=== PATIENT | male | born 1955 | race Caucasian/White ===

== ENCOUNTER 2017-04-26 21:10 | Emergency (ER) | payer MEDICAID ==
[~2017-04-26] VITALS: Ht 175.3 cm; Wt 79.4 kg
[~2017-04-26 21:10] MED LIST: CARI-316 PO; LORA-622 PO; LOVA10TA54 PO; PSEU12TA PO; RANI150C11 PO
[2017-04-26 21:28] VITALS: BP 136/85
[2017-04-26] MEDS ORDERED: KETOROLAC TROMETH 60MG/2ML VIAL IM ONE (22:45)
== END 2017-04-26 23:27 | disposition home or self-care (01) ==
LOC: ER 21:10
DX: S13.4XXA Sprain of ligaments of cervical spine, initial encounter (principal); Z79.899 Other long term (current) drug therapy; R51 Headache; M25.512 Pain in left shoulder; V43.52XA Car driver injured in collision with other type car in traffic accident, initial encounter; Y93.89 Activity, other specified; Y99.8 Other external cause status; Y92.89 Other specified places as the place of occurrence of the external cause
CPT/HCPCS: 70450; 72125; 73030; 96372; 99284; J1885

== ENCOUNTER 2017-05-08 17:37 | Emergency (ER) | payer MEDICAID ==
[~2017-05-08] VITALS: Ht 175.3 cm; Wt 77.1 kg
[2017-05-08 20:51] VITALS: BP 140/82
[2017-05-08] MEDS ORDERED: NEOMYCIN-BACITRACIN-POLYM UNITDOSE PKG TOP OINT TOP ONE (21:15)
[2017-05-08] MEDS ORDERED: TETANUS-DIPTH-ACEL PERTUSSIS 0.5ML SYRG IM ONE (21:15)
== END 2017-05-08 22:00 | disposition home or self-care (01) ==
LOC: ER 17:48
DX: S61.216A Laceration without foreign body of right little finger without damage to nail, initial encounter (principal); Z23 Encounter for immunization; W45.8XXA Other foreign body or object entering through skin, initial encounter; Y93.89 Activity, other specified; Y99.8 Other external cause status; Y92.89 Other specified places as the place of occurrence of the external cause
CPT/HCPCS: 12002; 90471; 90715

== ENCOUNTER 2021-04-28 10:19 | Emergency (ER) | payer MEDICARE, MEDICAID ==
[~2021-04-28] VITALS: Ht 175.3 cm; Wt 90.7 kg
[~2021-04-28 10:19] MED LIST changes: -CARI-316 PO; +CARI350T22 PO
[2021-04-28 11:07] LABS: Basophils # (auto) 0.1 10 ^3/uL (0-0.2); Basophils % (auto) 0.8 % (0.0-2.0); Eosinophils # (auto) 0.1 10 ^3/uL (0-0.8); Eosinophils % (auto) 1.4 % (0.0-7.0); Hematocrit 44.1 % (41.0-53.0); Hemoglobin 15.1 g/dL (13.5-17.5); Lymphocytes # (auto) 2.6 10 ^3/uL (0.4-5.4); Lymphocytes % (auto) 37.7 % (10.0-50.0); Mean Corpuscular Hemoglobin 29.1 pg (28.0-32.0); Mean Corpuscular Hgb Conc. 34.3 g/dL (32.0-36.0); Mean Corpuscular Volume 84.7 fL (80.0-100.0); Monocytes # (auto) 0.5 10 ^3/uL (0-1.3); Monocytes % (auto) 6.8 % (0.0-12.0); Neutrophils # (auto) 3.7 10 ^3/uL (1.6-8.6); Neutrophils % (auto) 53.3 % (37.0-80.0); Nucleated Red Blood Cells % 0.1 %; Red Cell Distribution Width 13.9 % (11.8-14.3); White Blood Cell 6.9 10^3/uL (4.4-10.8)
[2021-04-28 11:25] LABS: Albumin 3.4 g/dL (3.4-5.0); Anion Gap 6 (5-15); Blood Urea Nitrogen 15 mg/dL (7-18); Calcium 8.5 mg/dL (8.5-10.1); Carbon Dioxide 25 mmol/L (21-32); Chloride 106 mmol/L (98-107); Glucose 202 mg/dL (74-106); Potassium 3.9 mmol/L (3.5-5.1); Sodium 137 mmol/L (136-145)
[2021-04-28 11:37] LABS: Alanine Aminotransferase 42 U/L (16-61); Alkaline Phosphatase 150 U/L (45-117); Aspartate Aminotransferase 17 U/L (15-37); BUN/Creatinine Ratio 16.5; Bilirubin, Total 0.4 mg/dL (0.2-1.0); GFR African American 107 mL/min; GFR Non-African American 88 mL/min; Total Protein 7.2 g/dL (6.4-8.2)
[2021-04-28 16:14] VITALS: BP 149/71
[2021-04-28 16:36] LABS: Urine Bacteria NONE SEEN /hpf (None Seen); Urine Blood Negative /uL (Negative); Urine Mucus FEW (None Seen); Urine Specific Gravity 1.027 (1.001-1.035); Urine WBC 6 /hpf (0 - 3)
== END 2021-04-28 16:45 | disposition home or self-care (01) ==
LOC: ER 10:19
DX: L40.9 Psoriasis, unspecified (principal); I73.9 Peripheral vascular disease, unspecified; R73.9 Hyperglycemia, unspecified; I10 Essential (primary) hypertension; E78.5 Hyperlipidemia, unspecified; Z87.891 Personal history of nicotine dependence; Z79.899 Other long term (current) drug therapy
CPT/HCPCS: 36415; 71045; 80053; 81001; 84484; 85025; 93971

== ENCOUNTER 2025-07-09 17:19 | Inpatient (IN) | payer MEDICARE, MEDICAID ==
[~2025-07-09] VITALS: Ht 175.3 cm; Wt 84.8 kg
[~2025-07-09 17:19] MED LIST changes: +CARI-578 PO; -CARI350T22 PO
[2025-07-09 18:15] VITALS: PULSE 109; RESP 18; O2SAT 92
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
[2025-07-09 18:22] LABS: Hematocrit 47.1 % (41.0-53.0); Hemoglobin 16.2 g/dL (13.5-17.5); Mean Corpuscular Hemoglobin 29.5 pg (28.0-32.0); Mean Corpuscular Volume 85.8 fL (80.0-100.0); Nucleated Red Blood Cells % 0.1 %
[2025-07-09 18:30] LABS: Chloride 101 mmol/L (98-107); Potassium 4.0 mmol/L (3.5-5.1); Sodium 140 mmol/L (136-145)
[2025-07-09 18:31] LABS: Anion Gap 14 (5-15); Carbon Dioxide 25 mmol/L (20-31)
[2025-07-09 18:32] LABS: Calcium 9.8 mg/dL (8.7-10.4)
[2025-07-09 18:36] LABS: BUN/Creatinine Ratio 11.2 (10.0-20.0); Blood Urea Nitrogen 10 mg/dL (9-23)
[2025-07-09 18:38] LABS: Glucose 178 mg/dL (74-106)
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
[2025-07-09] MEDS ORDERED: ACETAMINOPHEN 325 MG TAB PO PRN (19:30)
[2025-07-09] MEDS ORDERED: DOCUSATE SOD 100 MG CAP PO PRN (19:30)
[2025-07-09] MEDS ORDERED: ONDANSETRON HCL 4 MG/2 ML VIAL IV PRN (19:30)
[2025-07-09] MEDS ORDERED: LORazepam 2MG/ML-1ML VIAL IV PRN (19:30)
[2025-07-09 19:31] LABS: Urine Protein, UAD TRACE (Negative)
[2025-07-09 19:33] LABS: Amphetamine Screen, Urine Neg (NEGATIVE); Barbiturate Scree,Urine Neg (NEGATIVE); Benzodiazephine Screen, Urine Neg (NEGATIVE); Cannabinoid Screen, Urine Neg (NEGATIVE); Cocaine Screen, Urine Neg (NEGATIVE); Opiate Scree,Urine Pos (NEGATIVE); Phencyclidine Screen, Urine Neg (NEGATIVE)
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
[2025-07-09] MEDS ORDERED: NITROGLYCERIN 0.4 MG SL TAB SL PRN (20:45)
[2025-07-09] MEDS ORDERED: MORPHINE SULFATE INJ 2 MG/ml SYRG IV PRN (20:45)
[2025-07-09] MEDS ORDERED: DEXTROSE (50%) 50ML SYRG IV PRN (22:30)
[2025-07-10] VITALS (8 sets, daily range): BP systolic 114–155; BP diastolic 70–95; PULSE 83–103; RESP 16–20; TEMP 97.8–98.6; O2SAT 94–99
[2025-07-10] MEDS: ATORVASTATIN 20 MG TAB ONE (00:15)
[2025-07-10] MEDS: ATORVASTATIN 20 MG TAB PO SCH (00:23)
[2025-07-10] MEDS: SODIUM CHLOR 0.9% PF (SALINE LOCK) 10ML VIAL/SYR IV SCH (00:31)
[2025-07-10] MEDS ORDERED: CYCL-611 PO (00:33)
[2025-07-10] MEDS ORDERED: HYDR-4072 PO (00:33)
[2025-07-10 06:01] LABS: Hematocrit 41.6 % (41.0-53.0); Hemoglobin 14.5 g/dL (13.5-17.5); Mean Corpuscular Hemoglobin 29.6 pg (28.0-32.0); Mean Corpuscular Volume 85.0 fL (80.0-100.0); Nucleated Red Blood Cells % 0.1 %
[2025-07-10] MEDS: InsuLIN REG 1unit/0.01ml Soln (100units/ml) SC SCH (06:04)
[2025-07-10] MEDS: ACCU-CHEK COMFORT CURVE STRIP VI SCH (06:04)
[2025-07-10] MEDS: InsuLIN REG 1unit/0.01ml Soln (100units/ml) ONE (06:09)
[2025-07-10 06:23] LABS: Anion Gap 8 (5-15); BUN/Creatinine Ratio 8.3 (10.0-20.0); Calcium 9.0 mg/dL (8.7-10.4); Carbon Dioxide 28 mmol/L (20-31); Chloride 102 mmol/L (98-107); Potassium 4.1 mmol/L (3.5-5.1); Sodium 138 mmol/L (136-145); Total Protein 6.7 g/dL (5.7-8.2)
[2025-07-10 06:24] LABS: Alanine Aminotransferase 59 U/L (7-40); Albumin 3.9 g/dL (3.2-4.8); Alkaline Phosphatase 146 U/L (46-116); Bilirubin, Total 0.6 mg/dL (0.2-1.0); Blood Urea Nitrogen 7 mg/dL (9-23); Glucose 162 mg/dL (74-106)
[2025-07-10] MEDS: FAMOTIDINE (10MG/ML) 2ML VL IV SCH (12:24)
[2025-07-10] MEDS: HYDROcodone-ACET 5/325MG TAB PO PRN (12:24)
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
[2025-07-10] MEDS ORDERED: levETIRAcetam 500 MG TAB PO ONE (21:00)
[2025-07-10] MEDS ORDERED: LORazepam 2MG/ML-1ML VIAL IV PRN ×2 (21:00)
[2025-07-10] MEDS: levETIRAcetam 500 MG TAB PO SCH (22:00)
[2025-07-10] MEDS: levETIRAcetam 500 MG TAB ONE (22:44)
[2025-07-11] VITALS (8 sets, daily range): BP systolic 122–146; BP diastolic 73–89; PULSE 84–100; RESP 17–18; TEMP 97.6–97.8; O2SAT 93–98
[2025-07-11] MEDS: levETIRAcetam 500 MG TAB ONE (09:24)
--- NOTE | 2025-07-11 10:35 | DVH ---
MRI BRAIN HEAD WO CONTRAST INDICATION: aloc EXAM DATE: 07/11/2025 09:45 AM COMPARISON: CT HEAD WITHOUT CONTRAST on DOS: 07/09/25 PROCEDURE: Using a 1.5 Ashely scanner, multisequence multiplanar imaging of the brain was obtained. FINDINGS: The brainshows normal morphology and signal characteristics. No abnormal T2 hyperintensity, diffusion restriction, or susceptibility hypointensity is present. The ventricles are normal in size. The midline structures are intact. The major intracranial flow voids are present. The aerated spaces are normal. The orbital contents and extracranial soft tissues appear normal. IMPRESSION: No acute abnormal MRI findings of the brain.
--- NOTE | 2025-07-11 17:46 | DVHPN2 ---
Subjective Patient remained stable without any seizures overnight. Evaluated by neurologist and recommending trial of oral antiseizure medications started on Keppra. MRI of the brain no acute pathology. EEG is pending. Changes from previous H/P or p: No Changes Eyes: No Pain, No Vision change, No Conjunctivae inflammation, No Eyelid inflammation, No Other, No Redness ENT: No Ear pain, No Ear discharge, No Nose pain, No Nose discharge, No Nose congestion, No Mouth pain, No Mouth swelling, No Throat pain, No Throat swelling, No Other Cardiovascular: No Chest Pain, No Palpitations, No Orthopnea, No Paroxysmal Noc. Dyspnea, No Edema, No Lt Headedness, No Other Respiratory: No Cough, No Dry, No Shortness of breath, No SOB with excertion, No Wheezing, No Hemoptysis, No Pleuritic Pain, No Sputum, No Other Gastrointestinal: No Nausea, No Vomiting, No Abdominal Pain, No Diarrhea, No Constipation, No Melena, No Hematochezia, No Other Genitourinary: No Dysuria, No Frequency, No Incontinence, No Hematuria, No Retention, No Other Musculoskeletal: No other; neck pain; No shoulder pain, No arm pain, No back pain, No hand pain, No leg pain, No foot pain Skin: No Rash, No Lesions, No Jaundice, No Bruising, No Other Objective Vitals Vital Signs Date Time Temp Pulse Resp B/P (MAP) Pulse Ox O2 Delivery O2 Flow Rate FiO2 07/11/25 16:10 97.8 93 18 130/79 (96) 93 97.8 07/10/25 20:00 Nasal Cannula* 2 28 Intake/Output Intake and Output 07/11/25 07:00 Intake Total 1086 ml Output Total 600 ml Balance 486 ml Intake Oral 1086 ml Output Urine Total 600 ml # Bowel Movements 2 Exam Alert awake oriented to place and person. HEENT neck supple no JVD pupils equal round react to light. Heart regular rate and rhythm S1 plus S2. Lungs fair air movement without any rales or wheezes. Chest equal to expansion. Abdomen is soft nontender nondistended positive bowel sounds. Extremities no edema positive pulses. Neurologically no focal deficits. Able to follow commands. Medications Current Medications Medications Dose Ordered Sig/Mukesh Route Start Time Stop Time Status Last Admin Dose Admin Lorazepam 1 mg Q2HP PRN IV 07/09/25 19:30 Atorvastatin Calcium 10 mg HS PO 07/09/25 22:00 07/10/25 21:40 10 MG Sodium Chloride 10 ml Q8HR IV 07/09/25 22:00 07/11/25 05:53 10 ML Acetaminophen/ Hydrocodone Bitart 1 tab Q4HP PRN PO 07/09/25 19:30 07/11/25 13:12 1 TAB Ondansetron HCl 4 mg Q4HP PRN IV 07/09/25 19:30 Docusate Sodium 100 mg BIDPRN PRN PO 07/09/25 19:30 Acetaminophen 650 mg Q6HP PRN PO 07/09/25 19:30 Nitroglycerin 0.4 mg Q5MINP PRN SL 07/09/25 20:45 Morphine Sulfate 2 mg Q30M PRN IV 07/09/25 20:45 Clonidine HCl 0.1 mg Q4HP PRN PO 07/09/25 22:30 07/10/25 00:30 0.1 MG Diagnostic Test (Pha) 1 strip ACHS 07/10/25 07:00 07/11/25 06:25 1 STRIP Insulin Human Regular ACHS SC 07/10/25 07:00 07/11/25 13:12 2 UNITS Dextrose 50 ml UD PRN IV 07/09/25 22:30 Lorazepam 1 mg ONCE PRN IV 07/10/25 21:00 Levetiracetam 500 mg BID PO 07/10/25 22:00 07/11/25 09:24 500 MG Lorazepam 1 mg Q5MINP PRN IV 07/10/25 21:00 Laboratory Results Laboratory Tests 07/10/25 05:44 Urinalysis Test 07/09/25 18:44 Urine Color Yellow (Yellow) Urine Clarity Clear (Clear) Urine pH 5.5 (5.0-9.0) Urine Specific [place] 1.021 (1.001-1.035) Urine Protein Trace (Negative) H Urine Ketones Trace (Negative) Urine Blood Negative /uL (Negative) Urine Nitrite Negative (Negative) Urine Bilirubin Negative (Negative) Urine Urobilinogen Normal mg/dL (Negative) Urine Leukocyte Esterase Negative /uL (Negative) Urine RBC <1 /hpf (0 - 3) Urine Microscopic WBC 1 /HPF (0-3) Urine Squamous Epithelial Cells None seen /hpf (<5) Urine Bacteria None seen /hpf (None Seen) Urine Mucus Few (None Seen) Urine Glucose Normal mg/dL (Normal) Labs and/or images reviewed: Labs reviewed by me Assessment/Plan Assessment/Plan questionable seizure. No seizures since admission. Evaluated by Neurology and follow his recommendations were trial of Keppra orally and no driving for 90 days. Monitor him overnight and if he remains seizure-free consider discharge home tomorrow. Discussed with the patient as well as the nurse regarding care plan at bedside. Plan discussed with: Patient, Other Problem List: (1) Autonomic dysfunction (2) Type 2 diabetes mellitus with hyperglycemia (3) Seizure (4) Musculoskeletal pain Date of Service: Jul 11, 2025 Billing Provider: SANDRA HERNANDEZ MD Common Visit Codes: [id number] INP/OBS CARE(MOD) SANDRA HERNANDEZ MD Jul 11, 2025 17:46
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
[2025-07-12 01:00] VITALS: BP 127/78; PULSE 85; RESP 17; TEMP 98.5; O2SAT 91
[2025-07-12 05:00] VITALS: BP 145/79; PULSE 94; RESP 17; TEMP 98.4; O2SAT 91
[2025-07-12 09:00] VITALS: BP 150/92; PULSE 83; RESP 18; TEMP 97.7; O2SAT 94
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
--- NOTE | 2025-07-12 12:33 | DVHDS2 ---
Discharge Summary Date of Admission Jul 09, 2025 at 20:40 Date of Discharge: Jul 12, 2025 Labs/Diagnostic Data: Laboratory Results Test 07/12/25 11:27 07/10/25 05:44 07/09/25 18:44 07/09/25 18:00 POC Glucose 189 mg/dl (70-106) White Blood Count 10.1 10^3/uL (4.4-10.8) Red Blood Count 4.90 10^6/uL (4.5-5.90) Hemoglobin 14.5 g/dL (13.5-17.5) Hematocrit 41.6 % (41.0-53.0) Mean Corpuscular Volume 85.0 fL (80.0-100.0) Mean Corpuscular Hemoglobin 29.6 pg (28.0-32.0) Mean Corpuscular Hemoglobin Concent 34.9 g/dL (32.0-36.0) Red Cell Distribution Width 13.8 % (11.8-14.3) Platelet Count 195 10^3/uL (140-450) Mean Platelet Volume 8.8 fL (6.9-10.8) Neutrophils (%) (Auto) 76.0 % (37.0-80.0) Lymphocytes (%) (Auto) 16.5 % (10.0-50.0) Monocytes (%) (Auto) 6.8 % (0.0-12.0) Eosinophils (%) (Auto) 0.4 % (0.0-7.0) Basophils (%) (Auto) 0.3 % (0.0-2.0) Neutrophils # (Auto) 7.6 10 ^3/uL (1.6-8.6) Lymphocytes # (Auto) 1.7 10 ^3/uL (0.4-5.4) Monocytes # (Auto) 0.7 10 ^3/uL (0-1.3) Eosinophils # (Auto) 0 10 ^3/uL (0-0.8) Basophils # (Auto) 0 10 ^3/uL (0-0.2) Nucleated Red Blood Cells 0.1 % Sodium Level 138 mmol/L (136-145) Potassium Level 4.1 mmol/L (3.5-5.1) Chloride Level 102 mmol/L (98-107) Carbon Dioxide Level 28 mmol/L (20-31) Anion Gap 8 (5-15) Blood Urea Nitrogen 7 mg/dL (9-23) Creatinine 0.84 mg/dL (0.700-1.30) Glomerular Filtration Rate Calc 93 mL/min (>90) BUN/Creatinine Ratio 8.3 (10.0-20.0) Serum Glucose 162 mg/dL (74-106) Calcium Level 9.0 mg/dL (8.7-10.4) Total Bilirubin 0.6 mg/dL (0.2-1.0) Aspartate Amino Transferase (AST) 26 U/L (13-40) Alanine Aminotransferase (ALT) 59 U/L (7-40) Alkaline Phosphatase 146 U/L (46-116) Total Protein 6.7 g/dL (5.7-8.2) Albumin 3.9 g/dL (3.2-4.8) Plasma/Serum Blood Alcohol < 3.0 mg/dL (<10) Urine Color Yellow (Yellow) Urine Clarity Clear (Clear) Urine pH 5.5 (5.0-9.0) Urine Specific [place] 1.021 (1.001-1.035) Urine Protein Trace (Negative) Urine Ketones Trace (Negative) Urine Blood Negative /uL (Negative) Urine Nitrite Negative (Negative) Urine Bilirubin Negative (Negative) Urine Urobilinogen Normal mg/dL (Negative) Urine Leukocyte Esterase Negative /uL (Negative) Urine RBC <1 /hpf (0 - 3) Urine Microscopic WBC 1 /HPF (0-3) Urine Squamous Epithelial Cells None seen /hpf (<5) Urine Bacteria None seen /hpf (None Seen) Urine Mucus Few (None Seen) Urine Glucose Normal mg/dL (Normal) Urine Opiates Screen Pos (NEGATIVE) Urine Fentanyl Screen Neg (NEGATIVE) Urine Barbiturates Screen Neg (NEGATIVE) Urine Phencyclidine Screen Neg (NEGATIVE) Urine Amphetamines Screen Neg (NEGATIVE) Urine Benzodiazepines Screen Neg (NEGATIVE) Urine Cocaine Screen Neg (NEGATIVE) Urine Cannabinoids Screen Neg (NEGATIVE) Hemoglobin A1c 6.8 % A1C (<5.7) Other Laboratory Tests 07/10/25 05:44 Brief Hx & Hospital Course: see dictated note Condition at Discharge: Fair Final Diagnosis/Problems List seizure Discharge Disposition: Home Discharge Instruct/Medications Diet: Cardiac 2g Na,low cholest Activity: No Restrictions, As Tolerated Follow Up/Referral: schedule appt with dr Parr in 2 wks Medications: script to pharmacy Scheduled Carisoprodol (Carisoprodol), 350 TAB PO BID, (Reported) Cyclobenzaprine HCl (Cyclobenzaprine Hydrochlo), 1 TAB PO TID, (Reported) Hydrocodone-Acetaminophen (Hydrocodone/Acetaminophen 10-325 mg), 1 TAB PO TID, (Reported) Loratadine (Claritin), 1 TAB PO DAILY, (Reported) Ranitidine Hcl (Ranitidine Hcl), 1 CAP PO BID, (Reported) Miscellaneous Medications Lovastatin (Lovastatin), 10 MG PO, (Reported) Pseudoephedrine (Sudogest 12 Hour), 12 HOUR PO, (Reported) Discharge Statement: "Patient was advised to return to the ER or call 911 if any headaches, dizziness, shortness of breath, chest pain, abdominal pain, bleeding, fevers, or worsening of medical condition. Patient was counseled about treatment plan, medications, possible side effects, patientverbalized understanding. All questions were answered to the best of my ability. This discharge took greater then 30 minutes in planning, reviewing documentation, counseling the patient, and discussing with other team members." ASSESSMENT ASSESSMENT Assessment seizure Date of Service: Jul 12, 2025 Billing Provider: ELIOT RENO MD Common Visit Codes: 16969-LGG/OBS DISCH DAY >30min ELIOT RENO MD Jul 12, 2025 12:33
[2025-07-12] MEDS ORDERED: KEP500T PO (12:34)
--- NOTE | 2025-07-12 12:38 | DVHPN2 ---
Date of Service: Jul 12, 2025 Billing Provider: ELIOT RENO MD Common Visit Codes: 60708-SGW/OBS DISCH DAY >30min Secondary Visit Codes: 89267-OUQYOGRH CARE PLAN 30 MINUTES ELIOT RENO MD Jul 12, 2025 12:38
[2025-07-12] MEDS ORDERED: METF-370 PO (12:39)
[2025-07-12 12:46] VITALS: BP 135/89; PULSE 79; RESP 17; TEMP 98.3; O2SAT 94
--- NOTE | 2025-07-12 12:46 | DVHDS ---
DATE OF DISCHARGE: 07/12/2025 HISTORY OF PRESENT ILLNESS: The patient is a 70-year-old gentleman, who was admitted after he was noted to have seizure activity and has a history of hyperlipidemia and questionable seizure disorder in the past. HOSPITAL COURSE: The patient had an MRI of the brain that showed no acute abnormality. The patient was seen in neurology consult by Dr. Parr. Cervical spine CT was also negative. The patient's tox screen was negative except for opiates. The patient has since had no further seizure activity and has been cleared for discharge by Dr. Parr. He will be discharged home to be on Keppra 500 mg b.i.d. He will followup with him in the next two weeks. FINAL DIAGNOSES: Therefore; * Seizure activity. * Hyperlipidemia. * Questionable diabetes mellitus. ADVANCED CARE PLANNING: The patient is a full code. Time spent was 17 minutes. Time spent in discharge planning and review of plan with the patient and nursing was 38 minutes. MD JUHI Hylton/MANOHAR TID: [id number] RECEIPT: [id number]
[2025-07-12 13:03] VITALS: BP 135/89; PULSE 79; RESP 17; TEMP 98.3; O2SAT 94
--- NOTE | 2025-07-13 23:17 | DVHEEG2 ---
Neurology EEG Procedural Note Procedural Note EXAM DATE: 07/11/2025 REFERRING DOCTOR: Dr. Schwab TECHNIQUE: Eighteen channels of EEG, 2 channels of EOG, and 1 channel of EKG were recorded using the [employer] 10/20 system. CLINICAL DATA: The patient was referred for an EEG evaluation for the evidence of seizure disorder. MEDICATIONS: See the chart BACKGROUND ACTIVITY: While the patient was awake, the background activity consisted of well regulated 10 Hz rhythmic waveforms, symmetrically distributed over both posterior quadrants and was reactive to eye opening. ACTIVATION: Hyperventilation: Not done Photic Stimulation: No photic convulsive response Sleep: Not seen IMPRESSION: This is a normal EEG. No focal, lateralized, or epileptiform features are noted. If clinically indicated to rule out a seizure disorder, recommend repeat EEG with sleep deprivation. The EKG channel showed a regular heart rate of 90/[place] [address]. AARON SCHWAB MD Jul 13, 2025 23:17
== END 2025-07-12 15:28 | disposition home or self-care (01) | DRG 101 ==
LOC: ER 17:19 → EDUNIT# 17:19 → EDBD 17:19 → OVERFLOW 20:40 → TELE-WESTW 23:43
PROVIDERS: ADMIT Internal Medicine; ATTEND Internal Medicine
DX: G40.209 Localization-related (focal) (partial) symptomatic epilepsy and epileptic syndromes with complex partial seizures, not intractable, without status epilepticus (principal); G90.9 Disorder of the autonomic nervous system, unspecified; I10 Essential (primary) hypertension; E11.65 Type 2 diabetes mellitus with hyperglycemia; R44.2 Other hallucinations; G89.29 Other chronic pain; L40.9 Psoriasis, unspecified; M54.50 Low back pain, unspecified; E78.5 Hyperlipidemia, unspecified; Z87.891 Personal history of nicotine dependence; Q69.9 Polydactyly, unspecified; V89.2XXA Person injured in unspecified motor-vehicle accident, traffic, initial encounter; Y93.55 Activity, bike riding; Y92.89 Other specified places as the place of occurrence of the external cause; Y99.8 Other external cause status
CPT/HCPCS: 36415; 70450; 70551; 72125; 80048; 80053; 80307; 80320; 81001; 82962; 83036; 85025; 95819; 97110; 97116; 97163; 97530; 99291; G0378; J1815; J3490